=== PATIENT | female | born 1980 | race Two or more races ===

== ENCOUNTER 2025-03-30 18:15 | Emergency (ER) | payer OTHER ==
[~2025-03-30] VITALS: Ht 177.8 cm; Wt 82.6 kg
[2025-03-30 20:58] LABS: BASO % 0.5 % (0.1-1.2); EOS # 0.03 (0.04-0.54); EOS % 0.5 % (0.7-7.0); HEMATOCRIT 35.7 % (34.1-44.9); HEMOGLOBIN 12.2 g/dL (11.2-15.7); LYMPH # 0.33 (1.18-3.74); LYMPH % 5.3 % (19.3-53.1); MEAN CORPUSCULAR HEMOGLOBIN 29.9 pg (25.6-32.2); MONO # 0.72 (0.24-0.82); MONO % 11.6 % (4.7-12.5); NEUT # 5.06 (1.56-6.13); NEUT % 81.6 % (34.0-71.1); PLATELET COUNT 216 K/uL (163-369); RED BLOOD COUNT 4.08 M/uL (3.93-5.22); RED CELL DISTRIBUTION WIDTH 11.8 % (11.6-14.4)
[2025-03-30 21:32] LABS: ALBUMIN 3.8 gm/dL (3.4-5.0); BILIRUBIN TOTAL 0.69 mg/dL (0.3-1.2); CALCIUM 8.7 mg/dL (8.5-10.1); CREATININE SERUM 0.78 mg/dL (0.55-1.02); GFR 80.61; POTASSIUM 3.81 mEq/L (3.5-5.1); TOTAL PROTEIN 7.8 gm/dL (6.4-8.2)
[2025-03-30 22:17] LABS: INFLUENZA A AG POSITIVE (NEGATIVE)
[2025-03-30 22:20] LABS: COVID-19 AG NEGATIVE (NEGATIVE)
[2025-03-30] MEDS ORDERED: OSEL75CA PO (23:38)
== END 2025-03-30 23:47 | disposition home or self-care (01) ==
LOC: ER 18:27
PROVIDERS: General Practice
DX: J10.1 Influenza due to other identified influenza virus with other respiratory manifestations (principal); Z20.822 Contact with and (suspected) exposure to COVID-19